=== PATIENT | female | born 2000 | race Caucasian/White ===

== ENCOUNTER 2022-12-12 19:33 | Emergency (ER) | payer OTHER ==
[2022-12-12] MEDS ORDERED: Bacitracin 1 PK ONE (20:02)
[2022-12-12] MEDS ORDERED: Silver Nitrate Application 1 EACH ONE (20:04)
== END 2022-12-12 20:28 | disposition home or self-care (01) ==
LOC: ERS 19:33
DX: R04.0 Epistaxis (principal); F17.290 Nicotine dependence, other tobacco product, uncomplicated
CPT/HCPCS: 30901